=== PATIENT | female | born 1985 | race Caucasian/White ===

== ENCOUNTER 2017-03-24 21:35 | Emergency (ER) | payer SELFPAY ==
[2017-03-24 22:00] VITALS: BP 107/76; PULSE 91; RESP 18; TEMP 98; O2SAT 92
[2017-03-24] MEDS ORDERED: CEPHALEXIN 250 MG/5 ML BOTTLE PO ONE (22:01)
[2017-03-24] MEDS ORDERED: TDAP VACCINE 0.5 ML SUS IM ONE ×2 (22:01→22:03)
[2017-03-24] MEDS ORDERED: CEPHALEXIN 250 MG/5 ML BOTTLE ONE (22:03)
== END 2017-03-24 22:19 | DRG 605 ==
LOC: ED 21:35
DX: S91.111A Laceration without foreign body of right great toe without damage to nail, initial encounter (principal); L03.031 Cellulitis of right toe; W25.XXXA Contact with sharp glass, initial encounter
CPT/HCPCS: 90715; 99282